=== PATIENT | male | born 1965 | race Caucasian/White ===

== ENCOUNTER 2021-07-13 08:08 | Outpatient (CLI) | payer BC | END 2021-07-13 08:09 | disposition home or self-care (01) | LOC: CSHLAB 08:08 | PROVIDERS: ATTEND Otolaryngology Plastic Surgery within the Head & Neck | DX: Z01.818 Encounter for other preprocedural examination (principal); Z20.822 Contact with and (suspected) exposure to COVID-19; Q89.2 Congenital malformations of other endocrine glands | CPT/HCPCS: 93005; 93010; U0003; U0005 ==

== ENCOUNTER 2021-07-18 07:16 | Day surgery (SDC) | payer BC ==
[2021-07-13 12:18] VITALS: BMI 28.8
[2021-07-18] MEDS ORDERED: Lidocaine 1% MPF 2 ML VIAL ONE (09:05)
[2021-07-18] MEDS ORDERED: Rocuronium Bromide 10 MG/ML (10ML VIAL) ONE (10:24)
[2021-07-18] MEDS ORDERED: Lidocaine 1% PF 5 ML VIAL ONE (10:24)
[2021-07-18] MEDS ORDERED: Fentanyl 100 MCG/2 ML VIAL ONE ×3 (10:24→12:39)
[2021-07-18] MEDS ORDERED: PROPOFOL 20 ML ONE ×2 (10:24→10:52)
[2021-07-18] MEDS ORDERED: Midazolam HCl 2 mg/2 ml Vial ONE (10:24)
[2021-07-18] MEDS ORDERED: Dexamethasone 20 MG/5 ML VIAL ONE (10:24)
[2021-07-18] MEDS ORDERED: Ondansetron PF 4 MG/2 ML Vial ONE (10:24)
[2021-07-18] MEDS ORDERED: CEFAZOLIN 1 GM VIAL ONE (10:37)
[2021-07-18] MEDS ORDERED: Glycopyrrolate 0.2 MG/ML 5 ML SYRINGE ONE (11:50)
[2021-07-18] MEDS ORDERED: EPINEPHrine 1 MG/ML AMP ONE (11:54)
[2021-07-18] MEDS ORDERED: Bupivacaine PF 0.5% 30 ML VIAL ONE (11:54)
[2021-07-18] MEDS ORDERED: HYDROcodone/Acetaminophen 5/325 mg Tablet ONE (14:03)
== END 2021-07-18 14:10 | disposition home or self-care (01) ==
LOC: CSHSDC 07:16
PROVIDERS: ATTEND Otolaryngology Plastic Surgery within the Head & Neck
PROC: 0WB60ZZ Excision of Neck, Open Approach (ICD-10-PCS; principal; 2021-07-18)
DX: Q89.2 Congenital malformations of other endocrine glands (principal); E11.9 Type 2 diabetes mellitus without complications; I10 Essential (primary) hypertension; J45.909 Unspecified asthma, uncomplicated; K21.9 Gastro-esophageal reflux disease without esophagitis; Z79.899 Other long term (current) drug therapy; Z98.84 Bariatric surgery status
CPT/HCPCS: 88305; J0171; J0690; J1100; J2250; J2405; J2704; J3010; S0020